=== PATIENT | male | born 1985 | race Caucasian/White ===

== ENCOUNTER 2018-04-05 23:04 | Inpatient (IN) ==
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
[2018-04-06 00:55] LABS: Baso % (Auto) 0.3 % (0.0-2.0); Eos % (Auto) 0.1 % (0.0-4.0); Hematocrit 41.2 % (39.0-51.0); Hemoglobin 13.7 gm/dL (13.0-17.0); Lymph # (Auto) 1.1 th/mm3 (1.0-4.8); Lymph % (Auto) 8.5 % (9.0-44.0); Mean Corpuscular HGB Conc 33.1 % (32.0-36.0); Mean Corpuscular Hemoglobin 24.1 pg (27.0-34.0); Mean Corpuscular Volume 72.8 fL (80.0-100.0); Mono # (Auto) 0.7 th/mm3 (0.0-0.9); Mono % (Auto) 5.4 % (0.0-8.0); Neut # (Auto) 11.2 th/mm3 (1.8-7.7); Neut % (Auto) 85.7 % (16.0-70.0); Platelet Count 221 th/mm3 (150-450); Red Blood Count 5.67 mil/mm3 (4.50-5.90); White Blood Count 13.1 th/mm3 (4.0-11.0)
[2018-04-06 01:11] LABS: INR 1.1 Ratio; Prothrombin Time 10.8 sec (9.8-11.6)
[2018-04-06 01:25] LABS: Anion Gap 5 meq/L (5-15); Blood Urea Nitrogen 16 mg/dL (7-18); Calcium 8.5 mg/dL (8.5-10.1); Carbon Dioxide 26.4 meq/L (21.0-32.0); Chloride 109 meq/L (98-107); Glomerular Filtration Rate Greater Than 89 mL/min (>89); Glucose,Random 131 mg/dL (74-106); Sodium 140 meq/L (136-145)
[2018-04-06] MEDS: Docusate Sodium 100 MG Capsule PO SCH ×2 (02:14→08:26)
[2018-04-06] MEDS: Sod Chloride 0.9% Inj 1,000 ML IV.CONT SCH ×3 (02:14→20:30)
[2018-04-06] MEDS: Pantoprazole Inj 40 MG Vial IV.PUSH SCH (02:15)
[2018-04-06] MEDS: HYDROmorphone PF Inj 0.5 MG/0.5 ML Syringe IV.PUSH PRN ×3 (02:38→16:44)
[2018-04-06] MEDS ORDERED: Chlorhexidine Gluconate 2% 1 Pack (2 Cloths) TOPICAL PRN (04:00)
[2018-04-06] MEDS ORDERED: Chlorhexidine Gluconate 2% 1 Pack (2 Cloths) TOPICAL SCH (04:00)
[2018-04-06] MEDS: Chlorhexidine Gluconate 0.12% Liq 15 ML UDC SWISH-SPIT SCH ×3 (08:26→17:36)
[2018-04-06] MEDS: Sodium Chloride 0.9% 2 ML Flush BID IV.FLUSH SCH ×2 (08:26→23:05)
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
[2018-04-06] MEDS ORDERED: Lidocaine 2%/Epinephrine 1:200,000 PF Inj 20 ML Vial ONE (11:38)
[2018-04-06] MEDS ORDERED: fentaNYL Citrate Inj 250 MCG/5 ML Ampul ONE ×2 (11:48)
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
[2018-04-06] MEDS ORDERED: Gelatin 12 MM/7 MM Topical Foam ONE (12:55)
--- NOTE | 2018-04-06 14:05 | P.OP ---
- Preoperative Diagnosis (1) Subcondylar fracture of left side of mandible (2) Fracture of right side of mandible (3) Fractured tooth due to trauma without complication Date of procedure: 04/06/18 Procedure: closed reduction of bilateral mandible fractures Surgical extraction of tooth #15 exam under anesthesia Anesthesia: GETA, local (2%lidocaine with 1:100,000 epi 8 cc) Surgeon: Albino Nava DMD Wilton Weaver: or staff Estimated blood loss (mL): 1
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
[2018-04-06 20:41] VITALS: RESP 18
[2018-04-06] MEDS: Acetaminophen-HYDROcodone 325/7.5 Liq 15 ML UDC PO PRN (20:59)
[2018-04-06] MEDS: Docusate Sodium Liq 100 MG/10 ML UDC PO SCH (20:59)
[2018-04-06] MEDS: ceFAZolin 1 GM Premix Inj 1 GM/50 ML FROZ.PIGGY IV.SIG SCH (21:00)
[2018-04-07] MEDS: Sod Chloride 0.9% Inj 1,000 ML IV.CONT SCH ×2 (00:54→07:18)
[2018-04-07] MEDS: Pantoprazole Inj 40 MG Vial IV.PUSH SCH (00:54)
[2018-04-07] MEDS: ceFAZolin 1 GM Premix Inj 1 GM/50 ML FROZ.PIGGY IV.SIG SCH (03:42)
[2018-04-07] MEDS: Acetaminophen-HYDROcodone 325/7.5 Liq 15 ML UDC PO PRN (03:45)
[2018-04-07 05:03] LABS: Baso % (Auto) 0.3 % (0.0-2.0); Eos % (Auto) 0.2 % (0.0-4.0); Hemoglobin 12.6 gm/dL (13.0-17.0); Lymph # (Auto) 2.4 th/mm3 (1.0-4.8); Lymph % (Auto) 23.8 % (9.0-44.0); Mean Corpuscular HGB Conc 31.5 % (32.0-36.0); Mean Corpuscular Hemoglobin 23.5 pg (27.0-34.0); Mean Corpuscular Volume 74.6 fL (80.0-100.0); Mean Platelet Volume 8.3 fL (7.0-11.0); Mono # (Auto) 0.9 th/mm3 (0.0-0.9); Mono % (Auto) 9.2 % (0.0-8.0); Neut # (Auto) 6.8 th/mm3 (1.8-7.7); Neut % (Auto) 66.5 % (16.0-70.0); Platelet Count 202 th/mm3 (150-450); Red Blood Count 5.37 mil/mm3 (4.50-5.90); Red Cell Distribution Width 15.1 % (11.6-17.2); White Blood Count 10.2 th/mm3 (4.0-11.0)
[2018-04-07 05:19] VITALS: O2SAT 96
[2018-04-07 05:26] LABS: Anion Gap 8 meq/L (5-15); Blood Urea Nitrogen 11 mg/dL (7-18); Calcium 8.3 mg/dL (8.5-10.1); Carbon Dioxide 25.5 meq/L (21.0-32.0); Chloride 106 meq/L (98-107); Glomerular Filtration Rate Greater Than 89 mL/min (>89); Glucose,Random 109 mg/dL (74-106); Potassium 3.8 meq/L (3.5-5.1); Sodium 139 meq/L (136-145)
--- NOTE | 2018-04-07 07:53 | P.PN ---
Subjective Interval history: POD 1 s/p closed reduction b/l mandible fractures - right symphysis/left subcondylar and extraction tooth #15 pt seen and examined this am, no complaints aaox3, nad, tolerating po well, ambulating, voiding reports feeling better denies f/c/n/v/sob/difficulty breathing Physical Exam Vital signs: Vital Signs 04/06/18 08:40 04/06/18 10:26 04/06/18 13:56 Temperature 97.9 F 98 F Pulse Rate 66 84 Respiratory Rate 18 18 18 Blood Pressure 147/80 H 160/98 H Pulse Oximetry 95 97 04/06/18 14:15 04/06/18 14:30 04/06/18 14:39 Temperature 98 F Pulse Rate 73 81 73 Respiratory Rate 18 18 18 Blood Pressure 147/93 H 155/93 H 147/87 H Pulse Oximetry 97 97 96 04/06/18 15:20 04/06/18 17:36 04/06/18 19:33 Temperature 98.1 F 97.2 F L Pulse Rate 83 94 H Respiratory Rate 18 20 18 Blood Pressure 143/89 H 141/93 H Pulse Oximetry 95 95 04/06/18 20:00 04/07/18 00:00 04/07/18 03:50 Temperature 97.4 F L 97.5 F L Pulse Rate 89 75 Respiratory Rate 18 18 Blood Pressure 133/74 127/83 Pulse Oximetry 95 95 96 Intake & Output 04/06/18 04/07/18 04/07/18 18:59 06:59 18:59 Intake Total 1840 / 1840 1100 / 1100 Output Total 1000 / 1000 Balance 1839 / 1839 100 / 100 Weight 61.9 kg Intake: IV 1100 / 1100 1100 / 1100 NS Inj 1,000 ML @ 100 mls/hr IV 1000 / 1000 1000 / 1000 .CONT .Q10H ENRRIQUE Rx#:[id number] Ancef 1 GM Premix Inj 1 gm In 100 / 100 50 ml @ 100 mls/hr IV.SIG Q8H ENRRIQUE Rx#:[id number] Ancef Inj 1,000 MG In NS Inj 100 / 100 100 ML @ 100 mls/hr IV.SIG ONCE ONE Rx#:[id number] Oral 240 / 240 0 / 0 Anesthesia Amount 500 / 500 Output: Urine 1000 / 1000 Estimated Blood Loss Other: # Voids 2 Date of Last Bowel Movement 04/06/18 04/05/18 # Bowel Movements 0 - Constitutional no acute distress - Routine HEENT Exam Head: Present: normocephalic - Detailed ENT Exam Comments: no facial/neck edema bite in occlusion arch bars/wires/IMF in place tissues pink/well perfused no signs of infection bleeding pus edema extraction tooth #15 site appears stable wire cutters at bedside Results - Labs CBC & Chem 7: 04/07/18 04:23 04/07/18 04:23 Laboratory Results - last 24 hr 04/06/18 04/07/18 04/07/18 08:00 04:23 04:23 WBC 10.2 RBC 5.37 Hgb 12.6 L Hct 40.0 MCV 74.6 L MCH 23.5 L MCHC 31.5 L RDW 15.1 Plt Count 202 MPV 8.3 Neut % (Auto) 66.5 Lymph % (Auto) 23.8 [place] % (Auto) 9.2 H Eos % (Auto) 0.2 Baso % (Auto) 0.3 Neut # (Auto) 6.8 Lymph # (Auto) 2.4 [place] # (Auto) 0.9 Eos # (Auto) 0.0 Baso # (Auto) 0.0 WBC Differential . Differential Comment Auto diff final Sodium 139 Potassium 3.8 Chloride 106 Carbon Dioxide 25.5 Anion Gap 8 BUN 11 Creatinine 0.85 Estimated GFR Greater than 89 Random Glucose 109 H Calcium 8.3 L Nasal Screen MRSA (PCR) Not detected Assessment and Plan - Plan POD 1 s/p closed reduction b/l mandible fractures and extraction of tooth #15 OK to d/c to home from OMS standpoint f/up dr Nava 1 week [facility] - call [phone] wire cutters with patient at all times for emergency airway management - send opt home with wire cutters full liquid diet no strenuous activity/exercises/work maintain good oral hygiene
[2018-04-07 09:00] VITALS: BP 126/82; PULSE 68; TEMP 97.2
[2018-04-07] MEDS: HYDROmorphone PF Inj 0.5 MG/0.5 ML Syringe IV.PUSH PRN (09:12)
[2018-04-07] MEDS: Docusate Sodium Liq 100 MG/10 ML UDC PO SCH (09:12)
[2018-04-07] MEDS: Sodium Chloride 0.9% 2 ML Flush BID IV.FLUSH SCH (09:18)
[2018-04-07] MEDS: Chlorhexidine Gluconate 0.12% Liq 15 ML UDC SWISH-SPIT SCH (09:18)
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
== END 2018-04-07 11:02 | disposition home or self-care (01) ==
LOC: NEPE 23:04 → NEDA 04-06 00:25 → N06 04-06 03:12
PROVIDERS: ADMIT Surgery; ATTEND Surgery
PROC: ORIFMAN (2018-04-06 12:06)